=== PATIENT | male | born 1995 | race Caucasian/White ===

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

== ENCOUNTER → 2017-01-04 | Outpatient (CLI) | payer OTHER ==
[2017-01-04 13:19] LABS: BASO % 0.3 % (0.0-1.0); EOS # 0.1 K/mm3 (0.0-0.50); EOS % 0.9 % (0.0-3.0); LARGE UNSTAINED CELL # 0.1 K/mm3 (0.0-0.4); LARGE UNSTAINED CELL % 1.1 % (0.0-4.0); LYMPH # 1.5 K/mm3 (1.5-6.5); LYMPH % 11.3 % (24.0-44.0); MEAN CORPUSCULAR HEMOGLOBIN 29.7 pg (27.0-33.0); MEAN CORPUSCULAR HGB CONC 34.2 g/dl (32.0-36.5); MEAN CORPUSCULAR VOLUME 86.7 fl (80.0-96.0); MONO # 0.4 K/mm3 (0.0-0.8); MONO % 3.3 % (0.0-5.0); NEUTROPHILS # 10.4 K/mm3 (1.8-7.7); NEUTROPHILS % 83.1 % (36.0-66.0); PLATELET COUNT, AUTOMATED 244 k/mm3 (150-450); RED CELL DISTRIBUTION WIDTH 12.1 % (11.5-14.5); WHITE BLOOD COUNT 12.4 K/mm3 (4.0-10.0)
[2017-01-04 13:51] LABS: ALBUMIN 4.4 GM/DL (3.2-5.2); ALBUMIN/GLOBULIN RATIO 1.69 (1.00-1.93); ALKALINE PHOSPHATASE 68 U/L (45-117); ALT/SGPT 21 U/L (12-78); ANION GAP 5 MEQ/L (8-16); AST/SGOT 20 U/L (15-37); BILIRUBIN,TOTAL 0.6 MG/DL (0.2-1.0); BLOOD UREA NITROGEN 9 MG/DL (7-18); CALCIUM LEVEL 8.8 MG/DL (8.5-10.1); CARBON DIOXIDE LEVEL 30 MEQ/L (21-32); CHLORIDE LEVEL 105 MEQ/L (98-107); CREATININE FOR GFR 0.98 MG/DL (0.70-1.30); FREE T4 1.19 NG/DL (0.78-1.33); GLUCOSE, FASTING 118 MG/DL (70-105); POTASSIUM SERUM 4.5 MEQ/L (3.5-5.1); SODIUM LEVEL 140 MEQ/L (136-145)
== END ==
LOC: M SMT 11:19
PROVIDERS: ATTEND Family Medicine
DX: R63.4 Abnormal weight loss (principal)

== ENCOUNTER → 2017-03-01 | Outpatient (CLI) | payer OTHER ==
--- NOTE | 2017-03-09 17:58 | HOLTMON ---
[facility] Test Date: 2017-03-01 Pat Name: PEDRO CALDWELL Department: Room: - Gender: Orthopaedic Technologist: VICKY COOPER : 1995 Requested By: DUKE MORALES Order Number: [id number] Reading MD: José Luis Morales Interpretive Statements Rhythm findings well within normal limits. Underlying sinus rhythm with a rate that vary between 40 bpm at 9:20 AM, and 192 bpm at 11:39 AM, averaging 79 bpm. There was no atrial or ventricular ectopic activity. The patient reported having chest/arm discomfort on 3 separate occasions. This symptom did not correlate with any change in his underlying rhythm, rate or repolarization appearance Electronically Signed On 03-09-2017 17:58:16 EDT by José Luis Morales
== END ==
LOC: M EKG 11:07
PROVIDERS: ATTEND Family Medicine
DX: R55 Syncope and collapse (principal)

== ENCOUNTER → 2018-06-25 | Outpatient (REF) | payer OTHER ==
[2018-06-25 21:35] LABS: CHLAMYDIA DNA AMPLIFICATION NEGATIVE (NEGATIVE); GC DNA AMPLIFICATION NEGATIVE (NEGATIVE)
== END ==
LOC: M LAB REF 17:03
DX: N40.0 Benign prostatic hyperplasia without lower urinary tract symptoms (principal)

== ENCOUNTER → 2020-08-14 | Outpatient (CLI) | payer OTHER ==
--- NOTE | 2020-08-18 12:05 | REPVR ---
PROCEDURE INFORMATION: Exam: MR Lumbar Spine Without Contrast. Exam date and time: 08/14/2020 5:37 PM Age: 25 years old Clinical indication: Low back pain; Additional info: Lbp h/o disc herniation TECHNIQUE: Imaging protocol: Multiplanar magnetic resonance images of the lumbar spine without intravenous contrast. COMPARISON: No relevant prior studies available. FINDINGS: Vertebrae: There is transitional anatomy the lumbosacral junction. The L5 vertebral segment is considered to be partially sacralized, the L5-S1 intervertebral disc developmentally hypoplastic. L5-S1 is considered to be axial image 4 of series 701 the T2 weighted sequence. Anatomic alignment. No acute fracture seen. The AP spinal canal diameter is diminished on a developmental basis due to shortened pedicles. Spinal cord: Conus medullaris ends normally. There is disc desiccation at L4-L5. No significant disc height loss. L1-L2: No significant disc disease. No significant spinal canal stenosis. No neural foraminal stenosis. L2-L3: No significant disc disease. No significant spinal canal stenosis. No neural foraminal stenosis. L3-L4: No significant disc disease. No significant spinal canal stenosis. No neural foraminal stenosis. L4-L5: Diffuse disc bulge. A subtle 2 mm central protrusion with high-intensity zone. In combination with developmental spinal canal narrowing there is mild central stenosis. No significant foraminal stenoses. L5-S1: No significant disc disease. No significant spinal canal stenosis. No neural foraminal stenosis. Soft tissues: Unremarkable. IMPRESSION: 1. Transitional anatomy of the lumbosacral, the L5 vertebral segment is considered to be partially sacralized, the L5-S1 intervertebral disc hypoplastic. 2. Developmental spinal canal narrowing due to shortened pedicles. 3. Mild disc degeneration at L4-L5. 4. Small disc protrusion at L4-L5 with high-intensity zone. Central spinal canal stenosis is mild. Electronically signed by: Vandana Jackson On 08/18/2020 12:05:50 PM
== END ==
LOC: M RAD 16:17
PROVIDERS: ATTEND Physician Assistant
DX: M51.16 Intervertebral disc disorders with radiculopathy, lumbar region (principal)

== ENCOUNTER → 2020-09-11 | Outpatient (REF) | payer OTHER | LOC: M LAB REF 12:07 | PROVIDERS: ATTEND Nurse Practitioner Adult Health | DX: L81.8 Other specified disorders of pigmentation (principal) ==

== ENCOUNTER → 2021-01-18 | Outpatient (CLI) | payer OTHER ==
--- NOTE | 2021-01-19 06:34 | REP ---
INDICATION: PAIN COMPARISON: None. TECHNIQUE: AP, lateral, bilateral oblique, and coned-down views of the lumbar spine. FINDINGS: Alignment and lordosis maintained. Vertebral bodies are intact. Disc spaces are relatively normal/age-appropriate. No acute fracture/compression injury or subluxation. No obvious spondylolysis or spondylolisthesis.. IMPRESSION: Normal Lumbosacral Spine series. <Electronically signed by Remy Daley > 01/19/21 [id number]
== END ==
LOC: M WUC 12:09
PROVIDERS: ATTEND Nurse Practitioner Adult Health
DX: M54.89 Other dorsalgia (principal)

== ENCOUNTER → 2021-10-08 | Outpatient (CLI) | payer BC | LOC: M RAD 09:07 | PROVIDERS: ATTEND Nurse Practitioner Adult Health | DX: I86.1 Scrotal varices (principal); Z80.43 Family history of malignant neoplasm of testis ==

== ENCOUNTER → 2022-07-27 | Outpatient (REF) | payer BC | LOC: M LAB REF 16:14 | PROVIDERS: ATTEND Nurse Practitioner Adult Health | DX: L81.8 Other specified disorders of pigmentation (principal); Z83.2 Family history of diseases of the blood and blood-forming organs and certain disorders involving the immune mechanism; Z84.81 Family history of carrier of genetic disease ==